=== PATIENT | female | born 1955 | race Caucasian/White ===

== ENCOUNTER 2017-01-29 02:59 | Inpatient (IN) ==
[2017-01-24 13:49] LABS: MANUAL DIFF NEEDED? NO; URINE MICRO REVIEW NEEDED? NO; URINE SOURCE CLEAN CATCH
[2017-01-24 13:57] LABS: BASO% 0.1 % (0.0-0.8); EOS% 1.9 % (0.0-10.0); HEMATOCRIT 39.3 % (37.0-47.0); IMM GRAN# 0.06 X1000 (0.0-0.04); IMM GRAN% 0.6 % (0.0-0.5); LYMPH# 3.26 X1000 (1.2-3.4); LYMPH% 31.4 % (20.5-51.1); MCH 32.5 PG (27-31); MCHC 33.1 g/dL (33-37); MCV 98.3 FL (81-99); MONO# 1.04 X1000 (0.11-0.59); PLT 241 X1000 (130-400)
[2017-01-24 13:59] LABS: BILIRUBIN URINE NEGATIVE (NEGATIVE); BLOOD URINE NEGATIVE (NEGATIVE); COLOR YELLOW; GLUCOSE URINE NEGATIVE (NEGATIVE); LEUKOCYTES URINE NEGATIVE (NEGATIVE); NITRITE URINE NEGATIVE (NEGATIVE); PROTEIN URINE TRACE mg/dL (NEGATIVE); SP GRAVITY URINE 1.026; TURBIDITY URINE CLEAR (CLEAR); UR EPITHELIAL CELLS <10 /HPF (<10); URINE BACTERIA NEGATIVE /HPF; URINE RBC <10 /HPF (<10); URINE WBC <10 /HPF (<10); UROBILINOGEN URINE NORMAL (NORMAL)
[2017-01-24 14:16] LABS: INR 0.94; PROTIME 9.8 Seconds (9.2-11.7); PTT 22.6 Seconds (22.0-36.0)
[2017-01-24 14:22] LABS: AGAP 14; BUN 19 mg/dL (8-22); CHLORIDE 101 mmol/L (98-107); COSMO 286; POTASSIUM 4.3 mmol/L (3.5-5.1); SODIUM 143 mmol/L (136-145); TCO2 28 mmol/L (25-35)
--- NOTE | 2017-01-24 14:45 | EKG Report ---
Test Performed on : 01/24/2017 1:42:43 PM Test Reason : pat Blood Pressure : / mmHG Vent. Rate : 059 BPM Atrial Rate : 059 BPM P-R Int : 158 ms QRS Dur : 074 ms QT Int : 412 ms P-R-T Axes : 046 047 055 degrees QTc Int : 407 ms Sinus bradycardia. Otherwise normal ECG When compared with ECG of 07-APR-2016 06:44, Vent. rate has decreased BY 37 BPM QT has shortened Confirmed by Jarod VICTOR, Bandar Manning ([id number]) on 01/25/2017 9:40:57 PM
[2017-01-29] MEDS ORDERED: ZOFRAN PO PRN (07:21)
[2017-01-29] MEDS ORDERED: LYRICA ONE (07:56)
[2017-01-29] MEDS ORDERED: REGLAN ONE (07:56)
[2017-01-29] MEDS ORDERED: PEPCID ONE (07:56)
[2017-01-29] MEDS ORDERED: COLACE ONE (07:56)
[2017-01-29] MEDS ORDERED: CELEBREX ONE (07:56)
[2017-01-29] MEDS ORDERED: LR 1,000 ML ONE ×2 (07:56→11:47)
[2017-01-29] MEDS ORDERED: KEFZOL 2 GM/D5W 2 GM/50 ML IVPB ONE (07:57)
[2017-01-29] MEDS ORDERED: ZIAC 10/6.25 MG PO ONE (08:30)
[2017-01-29] MEDS ORDERED: DURAMORPH ONE (08:39)
[2017-01-29] MEDS ORDERED: SODIUM CHLORIDE 0.9% ONE (08:39)
[2017-01-29] MEDS ORDERED: VANCOMYCIN ONE (08:39)
[2017-01-29] MEDS ORDERED: TORADOL ONE (08:39)
[2017-01-29] MEDS ORDERED: CYKLOKAPRON 1,000 MG/NS 1,000 MG/100 ML IVPB ONE ×2 (08:39→08:40)
[2017-01-29] MEDS ORDERED: MARCAINE 0.25% PF/EPI 1:200,000 ONE (08:39)
[2017-01-29] MEDS ORDERED: CLAVE SECONDARY SET 11953 ONE (08:40)
[2017-01-29] MEDS ORDERED: NEOSPORIN G.U. IRRIGANT ONE (08:40)
[2017-01-29] MEDS ORDERED: EXPAREL 1.3% ONE (08:40)
[2017-01-29 09:49] LABS: URINE MICRO REVIEW NEEDED? NO; URINE SOURCE CATH
[2017-01-29] MEDS ORDERED: VERSED ONE (11:30)
[2017-01-29] MEDS ORDERED: FENTANYL ONE (11:30)
[2017-01-29] MEDS ORDERED: DIPRIVAN 1% ONE (11:31)
[2017-01-29] MEDS ORDERED: NS 1,000 ML ONE (11:31)
[2017-01-29] MEDS: DILAUDID ONE ×2 (11:34→11:40)
[2017-01-29] MEDS ORDERED: PHENERGAN ONE (11:43)
[2017-01-29] MEDS ORDERED: ZOFRAN ONE (11:46)
[2017-01-29] MEDS ORDERED: QUELICIN (DOSE) ONE (11:47)
[2017-01-29] MEDS ORDERED: XYLOCAINE-MPF 2% ONE (11:47)
[2017-01-29] MEDS ORDERED: OFIRMEV 1000 MG/ISOTONIC SOLN 1,000 MG/100 ML BOTTLE ONE (11:47)
[2017-01-29] MEDS ORDERED: DECADRON ONE (11:47)
[2017-01-29 11:48] LABS: BILIRUBIN URINE NEGATIVE (NEGATIVE); BLOOD URINE NEGATIVE (NEGATIVE); COLOR YELLOW; GLUCOSE URINE NEGATIVE (NEGATIVE); LEUKOCYTES URINE NEGATIVE (NEGATIVE); NITRITE URINE NEGATIVE (NEGATIVE); PROTEIN URINE NEGATIVE (NEGATIVE); SP GRAVITY URINE 1.019; TURBIDITY URINE CLEAR (CLEAR); UROBILINOGEN URINE NORMAL (NORMAL)
[2017-01-29 11:49] LABS: UR EPITHELIAL CELLS <10 /HPF (<10); URINE BACTERIA NEGATIVE /HPF; URINE RBC <10 /HPF (<10); URINE WBC <10 /HPF (<10)
[2017-01-29] MEDS: NS 1,000 ML IV SCH (12:30)
--- NOTE | 2017-01-29 13:28 | Diag Imaging Result Document ---
PROCEDURE NAME: KNEE 1-2 VIEWS-RIGHT - 01/29/2017 RIGHT KNEE, 2 VIEWS: COMPARISON: None. FINDINGS: There is a long stemmed, hinged knee prosthesis. Alignment is anatomic. No hardware fracture or loosening. There is apparent old healed fracture at the proximal fibular shaft. IMPRESSION: No acute disease or complication.
[2017-01-29] MEDS: BUSPAR PO SCH ×3 (14:16→18:22)
[2017-01-29] MEDS: CELEBREX PO SCH (14:17)
[2017-01-29] MEDS: COLACE PO SCH ×2 (14:17→20:18)
[2017-01-29] MEDS: CYMBALTA PO SCH (14:17)
[2017-01-29] MEDS: DEPAKOTE PO SCH ×2 (14:17→20:18)
[2017-01-29] MEDS: NEURONTIN PO SCH ×3 (14:18→18:22)
[2017-01-29] MEDS: ZIAC 10/6.25 MG PO SCH (14:19)
--- NOTE | 2017-01-29 14:35 | HISTORY AND PHYSICAL ---
CHIEF COMPLAINT: Right knee pain. HISTORY OF PRESENT ILLNESS: This is a 61-year-old female with a history of bilateral degenerative knees. She had a left knee replaced in 2005 and did well. She has now progressed to the point that she has difficulty with daily living with her right now. She was evaluated in the office and found to need a right total knee arthroplasty. The surgical procedure, as well as risks and benefits was explained to patient at this time and she agreed to proceed. ALLERGIES: Not allergic to any medications. SERIOUS ILLNESSES: Cardiac artery disease, hypertension, sleep apnea. PAST SURGERIES: , gallbladder, gastric bypass, back surgery x3, ACDF, left total knee arthroplasty and left hip. REGULAR MEDICATIONS: Ziac 1, 1 a day. BuSpar 10, 3 times a day. Depakote 500 twice a day. Cymbalta 60 once a day. Gabapentin 600 mg, 3 times a day. Hydrocodone p.r.n. pain. Meloxicam 7.5, 1 a day. Robaxin 500 one at night. Zofran 8 p.r.n. nausea. Desyrel 100, one at night. Ambien 10 one at night. REVIEW OF SYSTEMS: HEENT: Has history of sleep apnea and she is also blind in the left eye. She also states she has difficulty using her CPAP. Heart: Has history of some heart blockage. No recent chest pain or [place]. Respiratory: She is a nonsmoker. No history of asthma, emphysema, shortness of breath. Abdomen: Has a history of gastric bypass. Musculoskeletal: Has history of fibromyalgia. PHYSICAL EXAMINATION: GENERAL: This is a 61-year-old female alert and oriented. Her primary care physician is Dr. Naylor. HEENT: Left eye is sluggish and nonresponsive because she is blind in her left eye. EOMs intact. NECK: Good range of motion without adenopathy. RESPIRATORY: Respirations equal, unlabored, clear bilaterally. HEART: Regular rate and rhythm. ABDOMEN: Soft, nontender. Bowel sounds present. EXTREMITIES: She complains of pain about her right knee. She states she has difficulty walking, difficulty with stairs, has minimal swelling. As far as her left knee she has a well-healed anterior scar and states she was happy with her other replacement. IMPRESSION: Degenerative disease, right knee. PLAN: Admit at this time for right total knee arthroplasty. Dictated by Robson Plaza RN for Genaro Cohn MD This chart was documented by the indicated scribe, Robson Plaza RN and accurately reflects the services I performed and decisions made by me, Genaro Cohn MD, as attested by the provider's signature. cc: Genaro Cohn MD
[2017-01-29] MEDS: MORPHINE IV PRN ×2 (15:11→18:27)
--- NOTE | 2017-01-29 16:01 | OPERATIVE NOTE ---
PROCEDURE DATE: 01/29/2017 PREOPERATIVE DIAGNOSIS: Degenerative joint disease, right knee. POSTOPERATIVE DIAGNOSIS: Degenerative joint disease, right knee. PROCEDURE: Right total knee replacement. SURGEON: Janice Cohn MD. PUBLIC HE[employer] AIDES TEACHER: Shahbaz Christiansen. ANESTHESIA: General. COMPLICATION: None. PROCEDURE IN DETAIL: A 61-year-old female presents for right knee replacement. Risks, benefits, and no guarantees were discussed, and she is willing to proceed. She was taken to the operating room and satisfactory anesthesia obtained. The right leg was prepped and draped in the usual sterile fashion. A time-out was taken to confirm operative site, procedure, and patient. The leg was wrapped with an Esmarch. Tourniquet inflated to 350 mmHg. A midline incision was made over the front of the knee followed by a quad tendon sparing arthrotomy. The patella was everted and resurfaced with freehand technique. It was then sized to a 35 round dome patella. The drill paddle was used to prepare for the patellar implant and then the patella subluxed laterally. An intramedullary hole was made in the distal femur and the distal femoral cutting block secured in 5 degrees of valgus. The additional 2 mm was taken off the primary distal femoral cut to accommodate for a flexion contracture. The knee was then flexed and an intramedullary hole made in the tibia and the tibial cutting block secured and tibial resection made for exposure. Sequential reaming of the tibia was undertaken up to an 18 mm reamer. The tibia was then broached with a [employer] PFC revision system broaching up to a 53 metaphysis heel sleeve size. A size 3 tibia was then used with the tibial base plate, and a 53 sleeve and an 18 x 75 stem to assemble the tibial component. After this was seated the knee was brought at 90 degrees and the femoral cutting block secured referencing off the tibial component with the spacer block to ensure proper geometry and soft tissue tension of the collateral ligaments. The femur was sized to a size 3 femoral implant. The femoral anterior posterior and chamfer cuts sequentially made and the notch created for the femur. Sequential broaching of the femur was then undertaken with a 20 stem and a size 46 porous femoral sleeve. The femoral component was then assembled and trial reduction performed with good range of motion and stability with a 12.5 rotating platform poly. The trial components were removed and the bony surfaces thoroughly irrigated with pulsatile lavage. Cement with a gram of vancomycin was then utilized to cement the tibial and femoral components after pre assembly on the back table onto the leg. A 35 dome patella was cemented onto the knee as well. The component list was noted to be a 48 full porous femoral sleeve adapter, a revision 53 metaphysis heel sleeve adapter for the tibial component and a 35 patella and a 75 x 18 stem on the tibia, 75 x 20 stem on the femur, a femoral adapter bolt and 5 degree femoral segment adaptor on the femur with a size 3, 12.5 rotating platform poly, a size 3 revision MPT tibial tray and TC3 size 3 femoral posterior stabilized component. After curing the cement, the joint was injected with Exparel for pain management and Hemovac drain placed. Final range of motion was 0-120 degrees with midline patellar tracking. The arthrotomy was then copiously irrigated and closed over the drain with #1 Vicryl in the arthrotomy, 2-0 Vicryl in the subcutaneous, and skin jaleel on the skin edges. Sterile dressings completed the closure and the patient was recovered from anesthesia and transferred to recovery room in stable condition. No intraoperative complications were noted. Instrument count and sponge count was correct at the time of closure. cc: Genaro Cohn MD
[2017-01-29] MEDS: KEFZOL 1 GM/D5W 1 GM/50 ML IVPB IV SCH (18:55)
[2017-01-29] MEDS: PERIDEX MT SCH (20:17)
[2017-01-29] MEDS: ROBAXIN PO SCH (20:18)
[2017-01-29] MEDS: NORCO-10 PO PRN (20:18)
[2017-01-29] MEDS: DESYREL PO SCH (20:20)
[2017-01-29] MEDS ORDERED: ZANTAC PO ONE (20:25)
[2017-01-29] MEDS: AMBIEN PO SCH (22:04)
[2017-01-30] MEDS: NS 1,000 ML IV SCH ×2 (01:12→17:22)
[2017-01-30] MEDS: KEFZOL 1 GM/D5W 1 GM/50 ML IVPB IV SCH (01:12)
[2017-01-30] MEDS: MORPHINE IV PRN ×2 (03:38→10:24)
[2017-01-30 06:25] LABS: HEMATOCRIT 27.5 % (37.0-47.0); HEMOGLOBIN 8.7 g/dL (12.0-16.0)
[2017-01-30] MEDS: XARELTO PO SCH (06:33)
[2017-01-30] MEDS: NORCO-10 PO PRN ×5 (06:34→21:26)
[2017-01-30 06:49] LABS: AGAP 11; BUN 18 mg/dL (8-22); CHLORIDE 107 mmol/L (98-107); COSMO 286; POTASSIUM 4.8 mmol/L (3.5-5.1); SODIUM 141 mmol/L (136-145); TCO2 23 mmol/L (25-35)
[2017-01-30] MEDS: PERIDEX MT SCH ×2 (08:51→21:27)
[2017-01-30] MEDS: COLACE PO SCH ×2 (08:52→21:26)
[2017-01-30] MEDS: ZIAC 10/6.25 MG PO SCH ×2 (08:52→08:56)
[2017-01-30] MEDS: NEURONTIN PO SCH ×3 (08:52→21:26)
[2017-01-30] MEDS: CELEBREX PO SCH (08:52)
[2017-01-30] MEDS: BUSPAR PO SCH ×3 (08:52→17:25)
[2017-01-30] MEDS: DEPAKOTE PO SCH ×2 (08:52→21:27)
[2017-01-30] MEDS: CYMBALTA PO SCH (08:52)
[2017-01-30] MEDS: AMBIEN PO SCH (21:26)
[2017-01-30] MEDS: ROBAXIN PO SCH (21:26)
[2017-01-31] MEDS: DESYREL PO SCH (02:05)
[2017-01-31] MEDS: NORCO-10 PO PRN ×3 (03:40→12:10)
[2017-01-31] MEDS: MORPHINE IV PRN ×2 (04:12→10:56)
[2017-01-31 06:33] LABS: HEMATOCRIT 27.4 % (37.0-47.0); HEMOGLOBIN 8.6 g/dL (12.0-16.0)
[2017-01-31] MEDS: XARELTO PO SCH (08:05)
[2017-01-31] MEDS: PERIDEX MT SCH (08:54)
[2017-01-31] MEDS: CYMBALTA PO SCH (08:55)
[2017-01-31] MEDS: NEURONTIN PO SCH (08:55)
[2017-01-31] MEDS: COLACE PO SCH (08:55)
[2017-01-31] MEDS: BUSPAR PO SCH ×2 (08:55→12:10)
[2017-01-31] MEDS: CELEBREX PO SCH (08:55)
[2017-01-31] MEDS: ZIAC 10/6.25 MG PO SCH (08:56)
[2017-01-31] MEDS: DEPAKOTE PO SCH (08:58)
[2017-01-31 11:10] VITALS: BP 98/43
--- NOTE | 2017-02-01 10:01 | DISCHARGE SUMMARY ---
ADMISSION DATE: 01/29/2017 DISCHARGE DATE: 01/31/2017 ADMITTING DIAGNOSIS: Degenerative joint disease of the right knee. ADDITIONAL DIAGNOSES: 1. Hypertension. 2. Coronary artery disease. 3. Sleep apnea. DISCHARGE DIAGNOSIS: 1. Degenerative joint disease of the right knee. 2. Hypertension. 3. Coronary artery disease. 4. Sleep apnea. ADMITTING HISTORY AND HOSPITAL COURSE: Ms. Moss is a 61-year-old white female with a history of advanced degenerative joint disease. She was admitted to the hospital on 01/29/2017 for a right total knee arthroplasty. After her surgery, she remained afebrile. Her vital signs remained stable as well as her hematocrit remained stable. She is currently ambulating about 100 feet with a front wheel walker. Her incision looks good. Dressing is dry. There is no sign of infection or DVT. DISPOSITION: We plan to discharge her to home today with home health coming out and working with her. DISCHARGE MEDICATIONS: Percocet 10 mg 1-2 p.o. every 6 hours p.r.n. for pain as well as Xarelto 10 mg p.o. daily for 14 days. She will continue on all of her other home medications. DISCHARGE INSTRUCTIONS: Ms. Moss is to discharge home today where she will begin a home physical therapy regimen. I discussed with her the medications I will be sending her home on are Percocet as well as Xarelto and clarified any questions that she had about that. I also discussed with her if she has any worsening signs or symptoms, any discharge from the incision site or any fever or chills to call us at the office immediately. We also need to see her back in about 10 days for routine followup and have her jaleel removed from her knee. Dictated by CISCO Stoddard for Genaro Cohn MD cc: CISCO Stoddard MD
== END 2017-01-31 12:58 | disposition home health service (06) ==
LOC: SURHOLD 02:59 → 4N 10:50
PROVIDERS: ADMIT Orthopaedic Surgery Adult Reconstructive Orthopaedic Surgery; ATTEND Orthopaedic Surgery Adult Reconstructive Orthopaedic Surgery